=== PATIENT | male | born 1960 | race Two or more races ===

== ENCOUNTER → 2016-11-07 | Day surgery (SDC) | payer OTHER ==
[~2016-11-07] MED LIST: NO MEDICATIONS
--- NOTE | ~2016-11-07 | OR ---
Unit #: [id number] #: [id number] Patient: GEORGE SEWELL [id number] [facility] [address] [facility]. [place], [place] [address] [id number] O MR#: [id number] NAME: GEORGE SEWELL ROOM: Date of Procedure: 11/07/2016 Admission Date: 11/07/2016 Surgeon: Harjinder Blanca M.D. : 1960 Attending Physician: Harjinder Blanca M.D. Primary Care Physician: Washington Leblanc M.D. OPERATIVE REPORT PREOPERATIVE DIAGNOSIS Reducible left inguinal hernia. POSTOPERATIVE DIAGNOSIS Direct left inguinal hernia. PROCEDURE PERFORMED Open repair with a large PerFix plug mesh ANESTHESIA General endotracheal anesthesia. ESTIMATED BLOOD LOSS Less than 10 mL. INDICATIONS FOR PROCEDURE Mr. 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 He presented with a painful bulge in the left inguinal canal. On examination, he had a reducible left inguinal hernia. Right inguinal canal was normal. DESCRIPTION OF PROCEDURE The patient was admitted to [facility], positively identified, and transported to the operating room, and after induction of general endotracheal anesthesia, his abdominal wall hair was clipped. He received IV antibiotics per SCIP protocol. He was prepped and draped in the usual sterile fashion. A transverse incision in the skin line was made over the inguinal canal. I dissected down through the soft tissue exposing the external oblique aponeurosis. The aponeurosis was opened in the direction of its fibers to include the external ring. Cord structures were mobilized from the floor of the inguinal canal and a large direct hernia sac was identified. It was from the cord structures and then reduced back in the peritoneal cavity and held in reduction with a large PerFix plug. The plug was secured with multiple 0 Ethibond interrupted sutures between the shelving edge of inguinal ligament and the conjoined tendon. A relaxing incision was made and then the onlay mesh was secured to the pubic tubercle medially stretched across the inguinal canal and the tails were wrapped around the cord structures, they exited the internal ring. The onlay mesh was secured to the rectus sheath medially and the inguinal ligament laterally. The cord was placed back in the anatomic position. The ilioinguinal and iliohypogastric nerves were identified and were intact. 30 mL of 0.5% Marcaine with epinephrine was Unit #: [id number] #: [id number] Patient: GEORGE SEWELL infiltrated in the fascia and soft tissue. The external oblique aponeurosis was reapproximated and then the soft tissue was closed with 3-0 Vicryl running suture and the skin was reapproximated with 4-0 Monocryl running subcuticular closure and Dermabond skin adhesive. Sponges and needle counts were correct x3. The patient tolerated the procedure well and was transported to the recovery in stable condition. Findings and postoperative instructions were discussed with the patient through the japanese interpreter. Dictated by... Sandy España/rebekah TD: 11/08/2016 04:02 JOB #: [id number] OPERATIVE REPORT X Harjinder Blanca MD X PROCEDURE OPERATIVE NOTE
== END | disposition home or self-care (01) ==
LOC: CSUR 06:11
DX: K40.90 Unilateral inguinal hernia, without obstruction or gangrene, not specified as recurrent (principal); I10 Essential (primary) hypertension; Z98.890 Other specified postprocedural states
CPT/HCPCS: C1781; J0690; J1100; J1885; J2250; J2405; J2765; J3010

== ENCOUNTER 2017-04-11 12:22 | Emergency (ER) | payer BC, OTHER ==
[~2017-04-11] VITALS: Ht 172.7 cm; Wt 77.1 kg
--- NOTE | ~2017-04-11 | EKG ---
PATIENT: GEORGE SEWELL UNIT #: [id number] Ventricular Rate: 73 BPM Atrial Rate: 73 BPM P-R Interval: 142 ms QRS Duration: 94 ms Q-T Interval: 378 ms QTC Calculation(Bezet): 416 ms P Mckinnon: 8 degrees Calculated R Mckinnon: 4 degrees Calculated T Mckinnon: 13 degrees Diagnosis Line: Normal sinus rhythm Diagnosis Line: Normal ECG Diagnosis Line: No previous ECGs available Diagnosis Line: Confirmed by TREV AGUDELO MD ([id number]) on 04/12/2017 Diagnosis Line: 8:36:51 AM INTERPRETING MD: MAGNUS JORGE
--- NOTE | ~2017-04-11 | CR72 ---
[facility] A Service of [facility] RADIOLOGY TEXT RESULTS PATIENT: GEORGE SEWELL LOCATION: [facility] : 58 UNIT #: [id number] AGE: [address]: Claire Power MD SEX: M ORDER DR: [id number] [facility] [address] [place], [place] [address] [id number] MR#: [id number] Acc #: [id number] NAME: GEORGE SEWELL : 1960 SEX: M STUDY DATE/TIME: 04/11/2017 13:39 UNIT: [facility] ROOM: STUDY DESCRIPTION: CR Chest Single View Portable Attending Physician: Claire Power M.D. Ordering Physician: Claire Power M.D. Primary Care Physician: Washington Leblanc M.D. MEDICAL IMAGING REPORT This report is preliminary unless electronic signature is present EXAM Portable chest radiograph. INDICATIONS Chest pain, shortness of breath starting today. FINDINGS Heart size is within normal limits for portable technique. There is eventration of the right hemidiaphragm. No pneumothorax or pleural effusion is identified. No acute infiltrates are seen. Dictated by... Rubi Swenson M.D. THIS IS AN ELECTRONICALLY VERIFIED REPORT Rubi Swenson M.D. at 04/11/2017 6:08 PM AFF/jt TD: 04/11/2017 17:40 JOB #: [id number] MEDICAL IMAGING REPORT Page 1 of 1 COPY
[2017-04-11 13:42] LABS: BASOPHIL% 0.6 % (0-2.5); EOSINOPHIL# 0.2 X10e3 (0-0.7); EOSINOPHIL% 2.9 % (0.0-7.0); HEMATOCRIT 41.8 % (38.0-50.0); HEMOGLOBIN 14.4 gm/dL (13.0-16.0); LYMPHOCYTE# 1.9 X10e3 (1.0-3.5); LYMPHOCYTE% 30.6 % (17.0-45.0); MEAN CELL VOLUME 88.4 FL (83-96); MEAN CORPUSCULAR HEMOGLOBIN 30.5 PG (28-34); MEAN CORPUSCULAR HGB CONC 34.5 g/dL (30-36); MEAN PLATELET VOLUME 9.7 FL (6.5-11.5); MONOCYTE# 0.3 X10e3 (0-1.0); MONOCYTE% 5.7 % (3.0-12.0); NEUTROPHIL# 3.7 X10e3 (1.5-7.1); NEUTROPHIL% 60.2 % (40-75); PLATELET COUNT 149 X10e3 (140-420); RED BLOOD COUNT 4.73 X10e (3.90-5.60); RED CELL DISTRIBUTION WIDTH 12.8 % (11.0-15.5); WHITE BLOOD COUNT 6.1 X10e3 (4.0-10.5)
[2017-04-11 13:43] LABS: DIFF IND NO
[2017-04-11 13:47] LABS: POC - CKMB 1.5 ng/mL (0.0-7.9); POC - TROPONIN <0.05 ng/mL (<=0.05)
[2017-04-11 14:10] LABS: ALBUMIN SERUM 4.3 g/dL (3.5-5.0); BILIRUBIN, DIRECT 0.1 mg/dL (0.0-0.2); BILIRUBIN,INDIRECT 0.6 mg/dL (0.0-0.9); BILIRUBIN,TOTAL 0.7 mg/dL (0.2-2.0); BUN/CREATININE RATIO 23.75; CALCIUM SERUM 8.8 mg/dL (8.4-10.2); CREATININE SERUM 0.8 mg/dL (0.6-1.4); GLOM FILT RATE Estimated 98.5 mL/min (>60); POTASSIUM 3.4 mmol/L (3.5-5.1); PROTEIN TOTAL SERUM 6.7 g/dL (6.0-8.3)
[2017-04-11 15:49] LABS: POC - CKMB 2.1 ng/mL (0.0-7.9); POC - TROPONIN <0.05 ng/mL (<=0.05)
== END 2017-04-11 16:40 | disposition home or self-care (01) ==
LOC: CED 12:22
PROVIDERS: Emergency Medicine
DX: R07.89 Other chest pain (principal); I10 Essential (primary) hypertension
CPT/HCPCS: 36415; 71010; 80048; 80076; 82553; 84484; 85025; 85379; 93005; 99285